=== PATIENT | female | born 1990 | race Caucasian/White ===

== ENCOUNTER 2024-07-19 10:13 | Day surgery (SDC) | payer OTHER ==
[~2024-07-19 10:13] MED LIST: LIDOCAINE 1% (10MG/ML) FOR IV START INTRADERMA PRN
[2024-07-19 11:25] VITALS: TEMP 97.6
[2024-07-19] MEDS: IV FLUID CONTINUATION 1,000 ML IV ONE (11:36)
[2024-07-19] MEDS: LACTATED RINGERS 1,000 ML IV SCH (11:37)
[2024-07-19] MEDS ORDERED: PROPOFOL 10 MG/ML 20 ML VIAL IV ONE (11:56)
--- NOTE | 2024-07-19 12:11 | P.PCN ---
Date of Procedure: 07/19/24 Procedure(s) Performed: BRIEF HISTORY: Patient is a 34-year-old pleasant white female scheduled for an elective colonoscopy as a part of chronic constipation, difficulty defecation and intermittent rectal bleeding for the last several years duration PROCEDURE PERFORMED: Colonoscopy with biopsy. PREOPERATIVE DIAGNOSIS: Chronic constipation and difficulty defecation. IV sedation per Anesthesia. PROCEDURE: After informed consent was obtained, the patient, was brought into the endoscopy unit. IV sedation was administered by Anesthesia under continuous monitoring. Digital rectal examination was normal. Initially the Olympus CF-160 flexible video colonoscope was then inserted in the rectum, gradually advanced into the cecum without any difficulty. Careful examination was performed as the scope was gradually being withdrawn. Ileocecal valve and the appendiceal orifice were visualized and appeared normal. Prep was excellent. Mucosa of the cecum, ascending colon, transverse colon, appeared normal. The descending colon there was a 3 mm polyp that was removed by cold biopsy. Rest of the descending colon, sigmoid colon, and rectum appeared normal. Retroflexion was performed in the rectum and small internal were seen. The patient tolerated the procedure well. IMPRESSION: 5 mm descending colon polyp status post cold biopsy Small internal hemorrhoids. Rest of the colon appeared normal RECOMMENDATIONS: Findings of this examination were discussed with the patient as well as her family.. She was advised to follow-up with the biopsy results. Continue with a high-fiber diet, take fiber supplements and osmotic laxatives as needed. If the biopsy reveals adenoma she can have repeat colonoscopy in 5 years
[2024-07-19 12:16] VITALS: RESP 16
[2024-07-19 14:03] VITALS: BP 111/76; PULSE 72
== END 2024-07-19 12:56 | disposition home or self-care (01) ==
LOC: ORWHC2ENDO 10:13
PROVIDERS: ATTEND Internal Medicine Gastroenterology
DX: D12.4 Benign neoplasm of descending colon (principal); K59.09 Other constipation; R19.5 Other fecal abnormalities; K64.8 Other hemorrhoids; E03.9 Hypothyroidism, unspecified; F90.9 Attention-deficit hyperactivity disorder, unspecified type; F41.9 Anxiety disorder, unspecified; F17.290 Nicotine dependence, other tobacco product, uncomplicated; Z79.890 Hormone replacement therapy; Z79.899 Other long term (current) drug therapy; Z88.5 Allergy status to narcotic agent; Z88.2 Allergy status to sulfonamides
CPT/HCPCS: 45380; 81025; 88305; J2704